=== PATIENT | male | born 1990 | race Caucasian/White ===

== ENCOUNTER 2018-04-20 08:49 | Outpatient (CLI) | payer OTHER ==
--- NOTE | 2018-04-20 13:20 | XRAY Report ---
Reason: PAIN IN RIGHT ARM Procedure Date: 04/20/2018 Accession Number: [id number] / [id number] Procedure: XR - Forearm RT CPT Code: FULL RESULT: EXAM: RIGHT FOREARM RADIOGRAPHY EXAM DATE: 04/20/2018 09:04 AM. CLINICAL HISTORY: Pain in right arm. COMPARISON: None. TECHNIQUE: 2 views. FINDINGS: Bones: Normal. No fractures or bone lesions. Joints: Normal. No effusions or subluxations in the visualized wrist or elbow joints. Soft Tissues: Normal. No soft tissue swelling. IMPRESSION: Normal forearm radiography. [facility]
== END 2018-04-20 08:50 | disposition home or self-care (01) ==
LOC: DI 08:49
PROVIDERS: ATTEND Nurse Practitioner Family
DX: M79.601 Pain in right arm (principal)

== ENCOUNTER 2022-07-10 10:12 | Emergency (ER) | payer MEDICAID ==
[2022-07-10] MEDS ORDERED: PROPARACAINE 0.5% OPHTH DROPS 15 ML RIGHTEYE STA (10:55)
--- NOTE | 2022-07-10 11:07 | ED Physician Documentation ---
PD HPI OPHTHO - Stated complaint Stated Complaint: RT EYE PX - Chief complaint Chief Complaint: Heent - History obtained from History obtained from: Patient - History of Present Illness Timing - onset: Last night Timing - duration: Hours (about 15) Timing - details: Abrupt onset, Still present Location: Right Quality / character: Aching Associated symptoms: Tearing, FB sensation (he was grinding metal with safety glasses and no injury then. Later heading hoome, he took off shirt and felt a small piece FB go into right eye. Tried flushing it. Slept hoping would be better this morning. Still feels FB sensation.). No: Redness, Swelling Contributing factors: FB Similar symptoms before: Has not had sx before Recently seen: Not recently seen Review of Systems Eyes: reports: Irritation. denies: Loss of vision, Decreased vision, Discharge PD PAST MEDICAL HISTORY - Past Medical History Cardiovascular: None Endocrine/Autoimmune: None - Present Medications Home Medications: Ambulatory Orders Medication Instructions Recorded Confirmed Emicizumab-Kxwh [Hemlibra] 150 mg SQ .WEEKLY 07/10/22 07/10/22 - Allergies Allergies/Adverse Reactions: Allergies Allergy/AdvReac Type Severity Reaction Status Date / Time No Known Drug Allergies Allergy Verified 07/10/22 10:26 PD ED PE NORMAL - Vitals Vital signs reviewed: Yes - General General: Alert and oriented X 3, Well developed/nourished, Other (appears uncomfortable with eye blinking on right. Feels better with proparacaine. ) - HEENT HEENT: PERRL, EOMI PD ED PE EXPANDED - Eyes Eyes: PERRL, EOMI, Right eye, Conj/sclera FB (small 1 mm metal apppearing FB at 2 oclock position in edge of iris, seen mainly by sidelighting. No hyphema. ) Results - Vitals Vitals: Vital Signs - 24 hr 07/10/22 07/10/22 10:23 12:02 Temperature 36.9 C Heart Rate 78 78 Respiratory 16 16 Rate Blood Pressure 148/104 H 154/104 H O2 Saturation 100 100 Oxygen O2 Source Room air Procedures - FB removal FB location: Other (right eye surface.) FB removal preparation: Local anesthesia-specify Removal method: Other (blunt needle tip. It was aluminum FB so no rust ring fortunately.) PD Medical Decision Making - ED course Complexity details: considered differential (aluminum FB right eye surface removed without problems. ), d/w patient Departure - Departure Disposition: 01 Home, Self Care Clinical Impression: Corneal foreign body Qualifiers: Encounter type: initial encounter Laterality: right Qualified Code(s): T15.01XA - Foreign body in cornea, right eye, initial encounter Condition: Stable Record reviewed to determine appropriate education?: Yes Instructions: ED Foreign Body Cornea Comments: I was able to remove the small metallic foreign body. Naturally there is still a small abrasion left at the area. This should heal however within a day or 2. You can use some ointment on the eye such as artificial tears or Lacri-Lube to help coat the area so it is less uncomfortable. Tylenol or ibuprofen as needed for pains. Typically we do not need to use antibiotic ointment or such for these unless any signs of infection develop. Recheck if that does. Otherwise I would an ticipate him improvement in back to normal activity within the next 1 or 2 days. Discharge Date/Time: 07/10/22 12:03
[2022-07-10] MEDS ORDERED: ERYTHROMYCIN OPHTH OINT 1 GM TUBE RIGHTEYE STA (11:36)
[2022-07-10 12:03] VITALS: BP 154/104
== END 2022-07-10 12:03 | disposition home or self-care (01) ==
LOC: ED 10:12
DX: T15.01XA Foreign body in cornea, right eye, initial encounter (principal); W45.8XXA Other foreign body or object entering through skin, initial encounter; W29.8XXA Contact with other powered hand tools and household machinery, initial encounter; Y93.89 Activity, other specified
CPT/HCPCS: 65220; 99282; J3490